=== PATIENT | male | born 1950 ===

== ENCOUNTER 2024-07-07 06:00 | Day surgery (SDC) | payer OTHER ==
[2024-07-01 11:08] LABS: PH,URINE 5.5 (5.0-8.0); URINE APPEARANCE Clear; URINE BILIRRUBIN Negative (NEGATIVE); URINE BLOOD Negative; URINE COLOR Yellow; URINE KETONE Negative (NEGATIVE); URINE LEUKOCYTE Negative; URINE NITRATE Negative; URINE PROTEIN Negative (NEGATIVE); URINE UROBILINOGEN 0.2 E.U./dl
[2024-07-01 11:11] LABS: HEMATOCRIT 45.2 % (39.0-48.0); HEMOGLOBIN 14.9 g/dL (13-16.00); MEAN CELL VOLUME 87.4 fL (80.0-100.00); MEAN CORPUSCULAR HEMOGLOBIN 28.9 pg (27.00-32.0); PLATELET COUNT 135 K/uL (150-450); RED BLOOD COUNT 5.17 M/uL (4.00-6.00); RED CELL DISTRIBUTION WIDTH 14.3 % (11.5-14.5)
[2024-07-01 11:21] LABS: URINE BACTERIA 2.5 uL (0.0-1933); URINE EPITHELIAL CELLS 0.6 uL (0.0-38.8); URINE GLUCOSE >=1000 MG/DL (NEGATIVE); URINE RBC 0.6 uL (0.0-20.8); URINE WBC 0.4 uL (0.0-23.2)
[2024-07-01 11:39] LABS: INR 1.04; PROTHROMBIN TIME 11.3 SECONDS (9.0-11.5)
[2024-07-01 12:02] LABS: ALBUMIN 4.1 gm/dL (3.4-5.0); BILIRUBIN TOTAL 0.4 mg/dL (0.3-1.2); CALCIUM 8.6 mg/dL (8.5-10.1); CREATININE SERUM 0.84 mg/dL (0.70-1.30); GFR 89.82; GLOBULINA 3.4 G/DL (2.4-3.5); POTASSIUM 4.4 mEq/L (3.5-5.1); TOTAL PROTEIN 7.5 gm/dL (6.4-8.2)
[~2024-07-07] VITALS: Ht 170.2 cm; Wt 69.9 kg
[~2024-07-07 06:00] MED LIST: FOSAMAX70 MG PO; JARDIANCE10 MG PO; LANTUS SOL100 UNIT/1; SYNTHROID88 MCG PO; VASOTEC2.5 MG PO; ZOLOFT50 MG PO
[2024-07-07] MEDS ORDERED: MONTELUKAST SOD10 MG (08:19)
[2024-07-07] MEDS ORDERED: ENALAPRIL MALE2.5 MG (08:19)
[2024-07-07] MEDS ORDERED: ROSUVASTATIN CA10 MG (08:20)
[2024-07-07] MEDS ORDERED: ALENDRONATE SOD35 MG (08:20)
[2024-07-07] MEDS ORDERED: WIXELA 250-501 EACH (08:20)
[2024-07-07] MEDS ORDERED: CEFAZOLIN SODIUM 1,000 MG VIAL IV ONE (10:30)
[2024-07-07] MEDS ORDERED: MORPHINE SULFATE 4 MG/ML VIAL IV ONE (10:30)
== END 2024-07-07 11:20 | disposition home or self-care (01) ==
LOC: SURH 06:00 → CIR.AMB 06:00 → O/R 06:00 → SURH 09:15 → EDSTATUS 09:45 → SURH 09:45 → CIR.AMB 11:20 → O/R 11:20
PROVIDERS: ATTEND Surgery
DX: K80.10 Calculus of gallbladder with chronic cholecystitis without obstruction (principal)